=== PATIENT | female | born 2000 | race American Indian/Alaskan Native ===

== ENCOUNTER 2019-03-17 14:32 | Emergency (ER) | payer SELFPAY ==
[2019-03-17 14:41] VITALS: BP 121/73
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
[2019-03-17] MEDS ORDERED: REGLAN PO ONE (16:07)
[2019-03-17] MEDS ORDERED: BANOPHEN PO ONE (16:07)
[2019-03-17] MEDS ORDERED: SOLU-Medrol IM ONE (16:07)
[2019-03-17] MEDS ORDERED: FIORICET PO ONE (16:07)
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
== END 2019-03-17 17:58 | disposition home or self-care (01) ==
LOC: ED 14:32
DX: S16.1XXA Strain of muscle, fascia and tendon at neck level, initial encounter (principal); S09.90XA Unspecified injury of head, initial encounter; F17.200 Nicotine dependence, unspecified, uncomplicated; V49.49XA Driver injured in collision with other motor vehicles in traffic accident, initial encounter; Y93.89 Activity, other specified; Y92.488 Other paved roadways as the place of occurrence of the external cause; Y99.8 Other external cause status
CPT/HCPCS: 72040; 96372; 99283; J2930; Q0163